=== PATIENT | female | born 1930 | race Caucasian/White ===

== ENCOUNTER 2016-04-22 19:28 | Inpatient (IN) | payer OTHER ==
[~2016-04-22] VITALS: Ht 147.3 cm; Wt 56.7 kg
[2016-04-22 19:28] VITALS: BP 140/58; PULSE 100; RESP 20; TEMP 98; O2SAT 98
[2016-04-22 20:39] LABS: BASOPHILS # (AUTO) 0.1 K/uL (0.0-0.2); BASOPHILS % (AUTO) 0.6 % (0.0-2.0); EOSINOPHILS # (AUTO) 0.2 K/uL (0.0-0.4); EOSINOPHILS % (AUTO) 1.8 % (0.0-4.0); HEMATOCRIT 35.8 % (36-48); HEMOGLOBIN 12.4 g/dL (12.0-16.0); LYMPHOCYTES # (AUTO) 0.8 K/uL (1.0-5.5); LYMPHOCYTES % (AUTO) 7.2 % (20.5-51.5); MEAN CORPUSCULAR HEMOGLOBIN 31 pg (27-31); MEAN CORPUSCULAR HGB CONC 35 % (32-36); MEAN CORPUSCULAR VOLUME 89 fL (79.0-98.0); MONOCYTES # (AUTO) 0.8 K/uL (0.0-1.0); NEUTROPHILS # (AUTO) 9.5 K/uL (1.8-7.7); NEUTROPHILS % (AUTO) 83.4 % (40.0-70.0); PLATELET COUNT (AUTO) 378 K/uL (130-430); RED BLOOD CELL COUNT(AUTO) 4.04 MIL/uL (4.2-6.2); WHITE BLOOD COUNT (AUTO) 11.4 K/uL (4.8-10.8)
[2016-04-22 20:44] LABS: INR 1.2 (0.8-1.2)
[2016-04-22 20:45] LABS: ANION GAP 9 (5-15); CALCIUM 8.4 mg/dL (8.4-11.0); CHLORIDE 105 mmol/L (98-107); CREATININE 1.47 mg/dL (0.55-1.30); GLUCOSE 196 mg/dL (70-99); POTASSIUM 3.4 mmol/L (3.5-5.1); SODIUM SERUM 139 mmol/L (136-145); UREA NITROGEN, BLOOD 17 mg/dL (8-21)
[2016-04-22 20:50] LABS: ALANINE AMINOTRANSFERASE 33 U/L (12-78); ALBUMIN 2.9 g/dL (3.4-4.8); ASPARTATE AMINOTRANSFERASE 33 U/L (10-37); TOTAL BILIRUBIN 0.3 mg/dL (0.0-1.0); TOTAL PROTEIN, SERUM 7.6 g/dL (6.4-8.3)
[2016-04-22] MEDS ORDERED: CALC-766 PO (20:51)
[2016-04-22] MEDS ORDERED: PRO40 PO (20:53)
[2016-04-22] MEDS ORDERED: FERR-57 PO (20:53)
[2016-04-22] MEDS ORDERED: PREG75CA PO (20:54)
[2016-04-22] MEDS ORDERED: NOR10 PO (20:54)
[2016-04-22] MEDS ORDERED: NACL 0.9% 1,000 ML IV ONE (21:18)
[2016-04-22] MEDS ORDERED: KETOROLAC TROMETHAMINE 30 MG VIAL IVP ONE (21:30)
[2016-04-22 21:41] LABS: BILIRUBIN,URINE NEGATIVE (NEGATIVE); BLOOD, URINE NEGATIVE (NEGATIVE); CLARITY/URINE CLEAR (CLEAR); COLOR,URINE YELLOW (YELLOW); GLUCOSE,URINE NEGATIVE (NEGATIVE); KETONES,URINE NEGATIVE (NEGATIVE); LEUKOCYTE ESTERASE ,URINE NEGATIVE (NEGATIVE); NITRITE, URINE NEGATIVE (NEGATIVE); PH,URINE 5.5 (5.0-8.0); PROTEIN URINE NEGATIVE (NEGATIVE); UROBILINOGEN,URINE 0.2 (0.2-1.0)
[2016-04-23] MEDS ORDERED: metroNIDAZOLE 500 mg/NS 100 ML IV ONE ×2 (03:00→03:44)
[2016-04-23 03:05] VITALS: BP 102/71; PULSE 84; RESP 18; TEMP 97; O2SAT 99
[2016-04-23 08:10] VITALS: BP 132/63; PULSE 63; RESP 16; TEMP 97.2; O2SAT 97
[2016-04-23] MEDS ORDERED: metroNIDAZOLE 500 mg/NS 100 ML IV SCH (11:00)
[2016-04-23 11:23] VITALS: BP 118/73; PULSE 82; RESP 19; TEMP 97; O2SAT 99
[2016-04-23] MEDS: metroNIDAZOLE 500 mg/NS 100 ML IV SCH ×2 (13:34→21:57)
[2016-04-23] MEDS: NACL 0.9% 1,000 ML IV SCH ×2 (13:38→21:57)
[2016-04-23 14:09] LABS: BASOPHILS % (AUTO) 0.7 % (0.0-2.0)
[2016-04-23 14:12] LABS: BASOPHILS # (AUTO) 0.1 K/uL (0.0-0.2); EOSINOPHILS # (AUTO) 0.3 K/uL (0.0-0.4); EOSINOPHILS % (AUTO) 3.5 % (0.0-4.0); HEMOGLOBIN 11.4 g/dL (12.0-16.0); LYMPHOCYTES # (AUTO) 1.2 K/uL (1.0-5.5); LYMPHOCYTES % (AUTO) 15.7 % (20.5-51.5); MEAN CORPUSCULAR HEMOGLOBIN 29 pg (27-31); MEAN CORPUSCULAR HGB CONC 33 % (32-36); MEAN CORPUSCULAR VOLUME 90 fL (79.0-98.0); MONOCYTES # (AUTO) 0.6 K/uL (0.0-1.0); MONOCYTES % (AUTO) 8.6 % (1.7-9.3); NEUTROPHILS # (AUTO) 5.3 K/uL (1.8-7.7); NEUTROPHILS % (AUTO) 71.5 % (40.0-70.0); PLATELET COUNT (AUTO) 279 K/uL (130-430); RED BLOOD CELL COUNT(AUTO) 3.89 MIL/uL (4.2-6.2); RED CELL DISTRIBUTION WIDTH 13.1 % (9.0-15.0)
[2016-04-23 14:17] LABS: WHITE BLOOD COUNT (AUTO) 7.5 K/uL (4.8-10.8)
[2016-04-23 14:27] LABS: ALANINE AMINOTRANSFERASE 22 U/L (12-78); ALBUMIN 2.5 g/dL (3.4-4.8); ANION GAP 10 (5-15); ASPARTATE AMINOTRANSFERASE 26 U/L (10-37); CALCIUM 7.9 mg/dL (8.4-11.0); CHLORIDE 111 mmol/L (98-107); CREATININE 1.16 mg/dL (0.55-1.30); GLUCOSE 145 mg/dL (70-99); POTASSIUM 3.3 mmol/L (3.5-5.1); SODIUM SERUM 140 mmol/L (136-145); TOTAL BILIRUBIN 0.2 mg/dL (0.0-1.0); TOTAL PROTEIN, SERUM 6.7 g/dL (6.4-8.3); UREA NITROGEN, BLOOD 13 mg/dL (8-21)
[2016-04-23 15:25] VITALS: BP 123/53; PULSE 89; RESP 19; TEMP 96.7; O2SAT 99
[2016-04-23 19:20] VITALS: BP 153/62; PULSE 94; RESP 20; TEMP 96.2; O2SAT 97
[2016-04-23] MEDS: PREGABALIN 75 MG CAPSULE (LYRICA) PO SCH (20:44)
[2016-04-23] MEDS: LACTOBACILLUS RHAMNOSUS GG 1 CAP CAPSULE PO SCH (21:58)
[2016-04-24 01:09] VITALS: BP 157/69; PULSE 95; RESP 18; TEMP 97.5; O2SAT 97
[2016-04-24 03:23] VITALS: BP 115/48; PULSE 91; RESP 18; TEMP 97.8; O2SAT 94
[2016-04-24] MEDS: metroNIDAZOLE 500 mg/NS 100 ML IV SCH ×4 (05:07→21:24)
[2016-04-24 08:00] VITALS: BP 138/63; PULSE 80; RESP 19; TEMP 97.8; O2SAT 97
[2016-04-24 08:55] LABS: BASOPHILS % (AUTO) 0.4 % (0.0-2.0); EOSINOPHILS # (AUTO) 0.3 K/uL (0.0-0.4); EOSINOPHILS % (AUTO) 3.4 % (0.0-4.0); HEMATOCRIT 32.8 % (36-48); HEMOGLOBIN 11.1 g/dL (12.0-16.0); LYMPHOCYTES # (AUTO) 1.4 K/uL (1.0-5.5); LYMPHOCYTES % (AUTO) 17.7 % (20.5-51.5); MEAN CORPUSCULAR HEMOGLOBIN 30 pg (27-31); MEAN CORPUSCULAR HGB CONC 34 % (32-36); MEAN CORPUSCULAR VOLUME 89 fL (79.0-98.0); MONOCYTES # (AUTO) 0.7 K/uL (0.0-1.0); MONOCYTES % (AUTO) 8.7 % (1.7-9.3); NEUTROPHILS # (AUTO) 5.6 K/uL (1.8-7.7); NEUTROPHILS % (AUTO) 69.8 % (40.0-70.0); PLATELET COUNT (AUTO) 343 K/uL (130-430); RED BLOOD CELL COUNT(AUTO) 3.67 MIL/uL (4.2-6.2); RED CELL DISTRIBUTION WIDTH 13.1 % (9.0-15.0)
[2016-04-24] MEDS: LACTOBACILLUS RHAMNOSUS GG 1 CAP CAPSULE PO SCH ×2 (09:00→21:23)
[2016-04-24] MEDS: PREGABALIN 75 MG CAPSULE (LYRICA) PO SCH ×3 (09:00→21:23)
[2016-04-24] MEDS ORDERED: PANTOPRAZOLE SODIUM 40 MG TAB PO SCH (09:00)
[2016-04-24] MEDS: amLODIPine BESYLATE 10 MG TABLET PO SCH (09:01)
[2016-04-24] MEDS: PANTOPRAZOLE SODIUM 40 MG/VIAL (PROTONIX) IVP SCH ×2 (09:01→21:23)
[2016-04-24] MEDS: VANCOMYCIN HCL 250 MG CAPSULE PO SCH ×4 (09:02→21:23)
[2016-04-24 09:07] LABS: INR 1.3 (0.8-1.2); PROTHROMBIN TIME 13.8 SECS (9.5-12.5)
[2016-04-24 09:41] LABS: ANION GAP 11 (5-15); CALCIUM 7.6 mg/dL (8.4-11.0); CHLORIDE 109 mmol/L (98-107); CREATININE 0.85 mg/dL (0.55-1.30); GLUCOSE 113 mg/dL (70-99); SODIUM SERUM 145 mmol/L (136-145); TOTAL BILIRUBIN 0.3 mg/dL (0.0-1.0); UREA NITROGEN, BLOOD 5 mg/dL (8-21)
[2016-04-24 09:42] LABS: ALANINE AMINOTRANSFERASE 25 U/L (12-78); ALBUMIN 2.4 g/dL (3.4-4.8); ASPARTATE AMINOTRANSFERASE 32 U/L (10-37); TOTAL PROTEIN, SERUM 6.4 g/dL (6.4-8.3)
[2016-04-24 09:43] LABS: POTASSIUM 2.9 mmol/L (3.5-5.1)
[2016-04-24] MEDS ORDERED: POTASSIUM CHLORIDE 40 MEQ in NS 250 ML IV ONE (10:30)
[2016-04-24 11:46] VITALS: BP 130/56; PULSE 89; RESP 16; TEMP 97; O2SAT 95
[2016-04-24] MEDS: NACL 0.9% 1,000 ML IV SCH ×2 (11:48→18:45)
[2016-04-24 13:46] LABS: ANION GAP 8 (5-15); CALCIUM 7.7 mg/dL (8.4-11.0); CHLORIDE 107 mmol/L (98-107); CREATININE 0.86 mg/dL (0.55-1.30); GLUCOSE 120 mg/dL (70-99); POTASSIUM 3.7 mmol/L (3.5-5.1); SODIUM SERUM 142 mmol/L (136-145); UREA NITROGEN, BLOOD 4 mg/dL (8-21)
[2016-04-24] MEDS ORDERED: SIMETHICONE 40 MG/0.6 ML ML ONE (13:51)
[2016-04-24 13:52] LABS: ALANINE AMINOTRANSFERASE 24 U/L (12-78); ALBUMIN 2.4 g/dL (3.4-4.8); ASPARTATE AMINOTRANSFERASE 43 U/L (10-37); TOTAL BILIRUBIN 0.3 mg/dL (0.0-1.0); TOTAL PROTEIN, SERUM 6.5 g/dL (6.4-8.3)
[2016-04-24] MEDS: MIDAZOLAM HCL 5 MG/5 ML VIAL ONE ×3 (15:27→15:36)
[2016-04-24] MEDS: fentaNYL CITRATE/PF 100 MCG/2 ML AMP ONE ×2 (15:27→15:31)
[2016-04-24 15:37] VITALS: BP 119/59; PULSE 87; RESP 16; TEMP 96.7; O2SAT 98
[2016-04-24 16:54] LABS: HEMATOCRIT 33.6 % (36-48); HEMOGLOBIN 11.6 g/dL (12.0-16.0)
[2016-04-24 19:50] VITALS: BP 137/62; PULSE 75; RESP 20; TEMP 97.7; O2SAT 98
[2016-04-25] VITALS: BP 134/64; PULSE 84; RESP 16; TEMP 97.2; O2SAT 98
[2016-04-25 02:08] LABS: HEMATOCRIT 32.7 % (36-48); HEMOGLOBIN 10.9 g/dL (12.0-16.0)
[2016-04-25 04:39] VITALS: BP 123/55; PULSE 82; RESP 16; TEMP 98.2; O2SAT 97
[2016-04-25] MEDS: NACL 0.9% 1,000 ML IV SCH ×2 (05:06→21:24)
[2016-04-25] MEDS: metroNIDAZOLE 500 mg/NS 100 ML IV SCH ×3 (05:06→21:24)
[2016-04-25 08:00] VITALS: BP 148/77; PULSE 89; RESP 18; TEMP 96.5; O2SAT 96
[2016-04-25 11:37] VITALS: BP 126/52; PULSE 90; RESP 16; TEMP 97.5; O2SAT 98
[2016-04-25] MEDS: PANTOPRAZOLE SODIUM 40 MG/VIAL (PROTONIX) IVP SCH ×2 (11:39→21:23)
[2016-04-25] MEDS: LACTOBACILLUS RHAMNOSUS GG 1 CAP CAPSULE PO SCH ×2 (11:55→21:24)
[2016-04-25] MEDS: PREGABALIN 75 MG CAPSULE (LYRICA) PO SCH ×3 (11:55→21:24)
[2016-04-25] MEDS: amLODIPine BESYLATE 10 MG TABLET PO SCH (11:55)
[2016-04-25] MEDS: VANCOMYCIN HCL 250 MG CAPSULE PO SCH ×4 (11:55→21:24)
[2016-04-25 13:10] LABS: HEMATOCRIT 37.9 % (36-48); HEMOGLOBIN 12.8 g/dL (12.0-16.0)
[2016-04-25 14:00] VITALS: Ht 147.3 cm; Wt 56.7 kg
[2016-04-25 15:36] VITALS: BP 134/58; PULSE 76; RESP 19; TEMP 98.3; O2SAT 95
[2016-04-25 19:45] VITALS: BP 126/59; PULSE 89; RESP 20; TEMP 98.7; O2SAT 96
[2016-04-25 20:40] LABS: HEMATOCRIT 31.3 % (36-48); HEMOGLOBIN 10.8 g/dL (12.0-16.0)
[2016-04-26] VITALS: BP 125/66; PULSE 96; RESP 16; TEMP 98.7; O2SAT 99
[2016-04-26 02:02] LABS: HEMATOCRIT 31.8 % (36-48); HEMOGLOBIN 10.6 g/dL (12.0-16.0)
[2016-04-26 04:00] VITALS: BP 130/70; PULSE 88; RESP 17; TEMP 98.9; O2SAT 100
[2016-04-26] MEDS: metroNIDAZOLE 500 mg/NS 100 ML IV SCH ×3 (05:05→22:06)
[2016-04-26 08:14] VITALS: BP 131/70; PULSE 86; RESP 18; TEMP 97.4; O2SAT 96
[2016-04-26 09:15] LABS: HEMATOCRIT 33.9 % (36-48); HEMOGLOBIN 11.6 g/dL (12.0-16.0)
[2016-04-26] MEDS: PANTOPRAZOLE SODIUM 40 MG/VIAL (PROTONIX) IVP SCH ×2 (09:36→21:53)
[2016-04-26] MEDS: NACL 0.9% 1,000 ML IV SCH ×3 (10:45→22:10)
[2016-04-26 11:31] VITALS: BP 136/56; PULSE 85; RESP 16; TEMP 97; O2SAT 96
[2016-04-26] MEDS ORDERED: SIMETHICONE 40 MG/0.6 ML ML ONE (12:34)
[2016-04-26] MEDS ORDERED: MIDAZOLAM HCL 5 MG/5 ML VIAL ONE (12:35)
[2016-04-26] MEDS ORDERED: MEPERIDINE HCL/PF 100 MG/ML AMP ONE (12:36)
[2016-04-26] MEDS: amLODIPine BESYLATE 10 MG TABLET PO SCH (14:37)
[2016-04-26] MEDS: LACTOBACILLUS RHAMNOSUS GG 1 CAP CAPSULE PO SCH ×2 (14:38→21:53)
[2016-04-26] MEDS: PREGABALIN 75 MG CAPSULE (LYRICA) PO SCH ×3 (14:38→21:53)
[2016-04-26 15:37] VITALS: BP 145/64; PULSE 61; RESP 19; TEMP 97.5; O2SAT 96
[2016-04-26] MEDS ORDERED: ONDANSETRON HCL 4 MG/2 ML VIAL IVP PRN (17:00)
[2016-04-26] MEDS: VANCOMYCIN HCL 250 MG CAPSULE PO SCH ×4 (17:21→21:53)
[2016-04-26 17:34] LABS: HEMATOCRIT 36.3 % (36-48); HEMOGLOBIN 12.1 g/dL (12.0-16.0)
[2016-04-27] VITALS (7 sets, daily range): BP systolic 100–157; BP diastolic 50–90; PULSE 54–95; RESP 16–18; TEMP 96.9–98.7; O2SAT 96–99
[2016-04-27] MEDS: metroNIDAZOLE 500 mg/NS 100 ML IV SCH ×2 (04:31→13:53)
[2016-04-27] MEDS: VANCOMYCIN HCL 250 MG CAPSULE PO SCH ×3 (09:00→17:10)
[2016-04-27 10:07] LABS: BASOPHILS # (AUTO) 0.1 K/uL (0.0-0.2); BASOPHILS % (AUTO) 1.1 % (0.0-2.0); EOSINOPHILS # (AUTO) 0.3 K/uL (0.0-0.4); EOSINOPHILS % (AUTO) 3.4 % (0.0-4.0); HEMATOCRIT 35.1 % (36-48); HEMOGLOBIN 11.8 g/dL (12.0-16.0); LYMPHOCYTES # (AUTO) 1.9 K/uL (1.0-5.5); LYMPHOCYTES % (AUTO) 21.6 % (20.5-51.5); MEAN CORPUSCULAR HEMOGLOBIN 30 pg (27-31); MEAN CORPUSCULAR HGB CONC 34 % (32-36); MEAN CORPUSCULAR VOLUME 91 fL (79.0-98.0); MONOCYTES # (AUTO) 0.5 K/uL (0.0-1.0); MONOCYTES % (AUTO) 5.7 % (1.7-9.3); NEUTROPHILS # (AUTO) 6.1 K/uL (1.8-7.7); NEUTROPHILS % (AUTO) 68.2 % (40.0-70.0); PLATELET COUNT (AUTO) 389 K/uL (130-430); RED BLOOD CELL COUNT(AUTO) 3.88 MIL/uL (4.2-6.2); RED CELL DISTRIBUTION WIDTH 13.1 % (9.0-15.0); WHITE BLOOD COUNT (AUTO) 8.9 K/uL (4.8-10.8)
[2016-04-27 10:14] LABS: ANION GAP 8 (5-15); CALCIUM 7.8 mg/dL (8.4-11.0); CHLORIDE 110 mmol/L (98-107); CREATININE 0.82 mg/dL (0.55-1.30); GLUCOSE 125 mg/dL (70-99); POTASSIUM 3.1 mmol/L (3.5-5.1); SODIUM SERUM 144 mmol/L (136-145); UREA NITROGEN, BLOOD 8 mg/dL (8-21)
[2016-04-27 10:33] LABS: ALANINE AMINOTRANSFERASE 35 U/L (12-78); ASPARTATE AMINOTRANSFERASE 57 U/L (10-37); TOTAL BILIRUBIN 0.2 mg/dL (0.0-1.0)
[2016-04-27 10:34] LABS: ALBUMIN 2.5 g/dL (3.4-4.8); TOTAL PROTEIN, SERUM 6.7 g/dL (6.4-8.3)
[2016-04-27] MEDS: PREGABALIN 75 MG CAPSULE (LYRICA) PO SCH ×2 (15:00→16:51)
[2016-04-27] MEDS: MIDAZOLAM HCL 5 MG/5 ML VIAL ONE ×2 (15:51→15:53)
[2016-04-27] MEDS: MEPERIDINE HCL/PF 50 MG/ML AMP ONE ×2 (15:52→15:54)
[2016-04-27] MEDS: LACTOBACILLUS RHAMNOSUS GG 1 CAP CAPSULE PO SCH (16:50)
[2016-04-27] MEDS: amLODIPine BESYLATE 10 MG TABLET PO SCH (16:51)
== END 2016-04-27 19:45 | disposition home or self-care (01) | DRG 371 ==
LOC: SED 19:28 → SMU 04-23 02:41
PROC: 0DJ08ZZ Inspection of Upper Intestinal Tract, Via Natural or Artificial Opening Endoscopic (ICD-10-PCS; principal; 2016-04-24 14:30)
DX: A04.7 Enterocolitis due to Clostridium difficile (principal); E43 Unspecified severe protein-calorie malnutrition; K92.1 Melena; E11.9 Type 2 diabetes mellitus without complications; F03.90 Unspecified dementia, unspecified severity, without behavioral disturbance, psychotic disturbance, mood disturbance, and anxiety; G89.4 Chronic pain syndrome; I10 Essential (primary) hypertension; M19.90 Unspecified osteoarthritis, unspecified site; K29.60 Other gastritis without bleeding; Z90.49 Acquired absence of other specified parts of digestive tract; Z90.710 Acquired absence of both cervix and uterus; Z80.7 Family history of other malignant neoplasms of lymphoid, hematopoietic and related tissues; Z68.26 Body mass index [BMI] 26.0-26.9, adult
CPT/HCPCS: 36415; 43235; 71010; 74246; 80053; 81003; 82272; 82962; 83690-TC; 83880; 84484; 85018-TC; 85025; 85610-TC; 85730-TC; 87230-TC; 93005; 96361; 96374; 99285; C9113; J1885; J2175; J2250; J3010; J3480; J3490; J7030; J7050

== ENCOUNTER 2021-04-25 13:41 | Emergency (ER) | payer OTHER, SELFPAY ==
[~2021-04-25] VITALS: Ht 157.5 cm; Wt 54.4 kg
[~2021-04-25 13:41] MED LIST: CALC-17 PO; FERR-57 PO; NOR10 PO; PREG75CA PO; PRO40 PO
--- NOTE | 2021-04-25 13:49 | NUR ---
Placed in room 07 . Placed on campus monitor, blood pressure machine and pulse oximeter. To gown for exam. Side rails up.
[2021-04-25 13:55] VITALS: BP_SYST 120
[2021-04-25 14:26] LABS: BASOPHILS % (AUTO) 0.2 % (0.0-2.0); EOSINOPHILS % (AUTO) 0.2 % (0.0-4.0); HEMATOCRIT 32.1 % (36-48); HEMOGLOBIN 10.7 g/dL (12.0-16.0); LYMPHOCYTES # (AUTO) 1.1 K/uL (1.0-5.5); LYMPHOCYTES % (AUTO) 9.5 % (20.5-51.5); MEAN CORPUSCULAR HEMOGLOBIN 30 pg (27-31); MEAN CORPUSCULAR HGB CONC 33 % (32-36); MEAN CORPUSCULAR VOLUME 90 fL (79.0-98.0); MONOCYTES # (AUTO) 0.5 K/uL (0.0-1.0); NEUTROPHILS % (AUTO) 86.1 % (40.0-70.0); PLATELET COUNT (AUTO) 339 K/uL (130-430); RED BLOOD CELL COUNT(AUTO) 3.55 MIL/uL (4.2-6.2); RED CELL DISTRIBUTION WIDTH 12.8 % (9.0-15.0); WHITE BLOOD COUNT (AUTO) 11.6 K/uL (4.8-10.8)
[2021-04-25 14:44] LABS: ANION GAP 10 (5-15); CALCIUM 8.3 mg/dL (8.4-11.0); CHLORIDE 103 mmol/L (98-107); CREATININE 1.02 mg/dL (0.55-1.30); GLUCOSE 203 mg/dL (70-99); POTASSIUM 3.7 mmol/L (3.5-5.1); SODIUM SERUM 137 mmol/L (136-145); UREA NITROGEN, BLOOD 32 mg/dL (8-21)
[2021-04-25 14:54] LABS: ALANINE AMINOTRANSFERASE 24 U/L (12-78); ALBUMIN 2.9 g/dL (3.4-4.8); ASPARTATE AMINOTRANSFERASE 18 U/L (10-37); TOTAL BILIRUBIN 0.2 mg/dL (0.0-1.0)
--- NOTE | 2021-04-25 15:00 | NUR ---
ER physician at bedside.
[2021-04-25] MEDS ORDERED: IOHEXOL 350 mgI/mL, 150 ML INFUS..BTL IV ONE (15:08)
--- NOTE | 2021-04-25 15:15 | NUR ---
18g IV placed on Right AC, no infiltration noted. Pt is A&Ox4. Pt has no c/o. Skin intact.
--- NOTE | 2021-04-25 15:16 | NUR ---
Pt currently at CT.
[2021-04-25 15:21] LABS: BILIRUBIN,URINE NEGATIVE (NEGATIVE); BLOOD, URINE NEGATIVE (NEGATIVE); CLARITY/URINE CLEAR (CLEAR); COLOR,URINE YELLOW (YELLOW); GLUCOSE,URINE NEGATIVE (NEGATIVE); KETONES,URINE NEGATIVE (NEGATIVE); LEUKOCYTE ESTERASE ,URINE NEGATIVE (NEGATIVE); NITRITE, URINE NEGATIVE (NEGATIVE); PROTEIN URINE NEGATIVE (NEGATIVE); UROBILINOGEN,URINE 0.2 (0.2-1.0)
--- NOTE | 2021-04-25 18:24 | NUR ---
IV removed, gauze and bandage applied. pt has no c/o. A&Ox4. VSS.
--- NOTE | 2021-04-25 18:45 | NUR ---
Pt came from a home ([facility]) and number is , and person in charge is Emilia Dumont .
--- NOTE | 2021-04-25 19:12 | NUR ---
Gave report to Beatriz to assume care.
--- NOTE | 2021-04-25 19:25 | NUR ---
received report from AM/RN, pt is d/c going to [facility], roller picker time @8842, call Emilia Dumont [phone] if there is a question. pt a&o x4, awake, verbal, ambulatory, no sob/ distress, no c/o pain at this time.
--- NOTE | 2021-04-25 19:45 | NUR ---
Patient given written and verbal discharge instructions and verbalizes understanding. ER MD discussed with patient the results and treatment provided. Patient in stable condition. ID arm band removed. IV catheter removed intact and dressing applied, no active bleeding. Rx of given. Patient educated on pain management and to follow up with PMD. Pain Scale . Opportunity for questions provided and answered. Medication side effect fact sheet provided.
[2021-04-25 19:49] VITALS: BP_SYST 120
== END 2021-04-25 19:49 | disposition home or self-care (01) ==
LOC: SED 13:41
DX: R55 Syncope and collapse (principal); R53.1 Weakness; I10 Essential (primary) hypertension; E11.9 Type 2 diabetes mellitus without complications; Z88.5 Allergy status to narcotic agent; Z79.899 Other long term (current) drug therapy; Z20.822 Contact with and (suspected) exposure to COVID-19
CPT/HCPCS: 36415; 70450; 70496; 70498; 71045; 76376; 80053; 81003; 84484; 85025; 87426; 99284; Q9967